=== PATIENT | female | born 1985 | race Caucasian/White ===

== ENCOUNTER 2017-01-04 11:31 | Emergency (ER) | payer OTHER ==
[~2017-01-04] VITALS: Ht 162.6 cm; Wt 102.2 kg
[~2017-01-04 11:31] MED LIST: AMOXICILLIN500 M1 PO; OMEPRAZOLE20 MG PO; OXYCODONE HCL5 MG PO; TYLENOL WITH C1 EACH PO; ZOFRAN4 MG PO
[2017-01-04] MEDS ORDERED: NAPROSYN500 MG PO (14:04)
[2017-01-04] MEDS ORDERED: REGLAN10 MG PO (14:04)
[2017-01-04] MEDS ORDERED: ZOFRAN ODT4 MG PO (14:04)
[2017-01-04 14:21] VITALS: BP 120/62
== END 2017-01-04 14:22 | disposition home or self-care (01) ==
LOC: EME 11:31 → EXP 11:31
DX: G43.909 Migraine, unspecified, not intractable, without status migrainosus (principal); R11.0 Nausea; F17.200 Nicotine dependence, unspecified, uncomplicated; Z71.6 Tobacco abuse counseling; Z98.51 Tubal ligation status
CPT/HCPCS: 99281; 99283; J1885